=== PATIENT | female | born 1990 | race Caucasian/White ===

== ENCOUNTER 2022-01-17 15:16 | Day surgery (SDC) | payer BC ==
[2022-01-17 16:19] VITALS: BMI 27.3
[2022-01-17] MEDS ORDERED: hydrALAZINE 20 MG/ML VIAL SLOW IVP PRN (16:45)
[2022-01-17 18:17] LABS: Bilirubin Neg (Negative); Blood, Urine 250 (Negative); Clarity Clear (Clear); Glucose, Urine (Dipstick) Normal (Negative); Ketone, Urine Negative (Negative); Leukocyte 25 (Negative); Nitrite Negative (Negative); Protein, Urine (Dipstick) 15 mg/dl (Neg-Trace); Urobilinogen Normal mg/dL (Less than 2)
[2022-01-17 18:25] LABS: Squamous Epithelial 0-3 HPF (0-3)
[2022-01-17 18:26] LABS: Bacteria/HPF 1+ HPF (None Seen); Transitional Epithelial 0-3 HPF (None Seen)
[2022-01-17] MEDS ORDERED: Cephalexin 500 MG CAP PO SCH (23:59)
== END 2022-01-17 19:45 | disposition home or self-care (01) ==
LOC: CSHLD/OP 15:16
PROVIDERS: ATTEND Student in an Organized Health Care Education/Training Program
DX: O30.002 Twin pregnancy, unspecified number of placenta and unspecified number of amniotic sacs, second trimester (principal); Z3A.24 24 weeks gestation of pregnancy; O23.42 Unspecified infection of urinary tract in pregnancy, second trimester; N39.0 Urinary tract infection, site not specified; Z79.899 Other long term (current) drug therapy
CPT/HCPCS: 76815; 81003; 81015; 87086; 99282

== ENCOUNTER 2022-04-13 05:41 | Inpatient (IN) | payer BC ==
[2022-04-12 11:51] LABS: Hemoglobin 12.6 g/dL (12.0-15.5); Platelet Count 219 10x3/uL (150-450)
[2022-04-12 12:25] LABS: Syphilis Antibody Nonreactive (Nonreactive); Syphilis Antibody Index 0.03 S/CO (<1.00 Non-Reactive)
[2022-04-12 12:27] LABS: HBSAg Index 0.15 S/CO (0-0.99); HIV (1/2) Antibody/Antigen Non-Reactive (NonReactive); HIV 1/2 INDEX 0.07 S/CO (<1.00); Hep B Surf Ag Non-Reactive S/CO (NonReactive)
[2022-04-12 12:37] LABS: SARS-CoV-2 NAA Rapid Test Not Detected (NotDetected)
[2022-04-13] MEDS ORDERED: hydrALAZINE 20 MG/ML VIAL SLOW IVP PRN ×2 (06:21→11:07)
[2022-04-13] MEDS ORDERED: Ondansetron PF 4 MG/2 ML Vial IVP PRN ×3 (06:21→11:07)
[2022-04-13] MEDS ORDERED: Lactated Ringer's 1,000 ML IV SCH (06:21)
[2022-04-13] MEDS ORDERED: Famotidine/PF 20 mg/2ml Vial SLOW IVP PRN (06:21)
[2022-04-13] MEDS ORDERED: Bicitra 30 ML UDCUP PO PRN (06:21)
[2022-04-13] MEDS ORDERED: Promethazine HCl 25 MG/ML VIAL IM PRN ×2 (06:21→08:32)
[2022-04-13] MEDS ORDERED: CEFAZOLIN 2 GM in Sodium Chloride 0.9% 100 ML IVPB SCH (06:21)
[2022-04-13 06:26] VITALS: BMI 31.3
[2022-04-13] MEDS ORDERED: Promethazine HCl 25 MG SUPP PR PRN (08:32)
[2022-04-13] MEDS ORDERED: Moisturizing Cream (Eucerin) 113 GM JAR TOP PRN (08:32)
[2022-04-13] MEDS ORDERED: Naloxone HCl 0.4 mg/ml Vial IVP PRN ×2 (08:32)
[2022-04-13] MEDS ORDERED: diphenhydrAMINE 50 MG/ML VIAL IVP PRN (08:32)
[2022-04-13] MEDS ORDERED: Fentanyl 100 MCG/2 ML VIAL SLOW IVP PRN (08:32)
[2022-04-13] MEDS ORDERED: Naloxone HCl 0.4 mg/ml Vial IV PRN (08:32)
[2022-04-13] MEDS ORDERED: Ondansetron HCl/PF 4 MG/2 ML Vial IVP PRN (08:32)
[2022-04-13] MEDS ORDERED: Meperidine HCl/PF 25 MG/ML VIAL SLOW IVP PRN (08:32)
[2022-04-13] MEDS ORDERED: Communication Order-Pharmacy FS SCH (08:45)
[2022-04-13] MEDS ORDERED: Ketorolac Tromethamine 30 MG/ML VIAL IVP SCH (08:45)
[2022-04-13] MEDS ORDERED: Acetaminophen 325 MG TAB PO PRN (11:07)
[2022-04-13] MEDS ORDERED: Lanolin Ointment 7 GM TUBE TOP PRN (11:07)
[2022-04-13] MEDS ORDERED: HYDROcodone/Acetaminophen 5/325 mg Tablet PO PRN ×3 (11:07→20:45)
[2022-04-13] MEDS ORDERED: Bisacodyl 10 MG SUPP PR PRN (11:07)
[2022-04-13] MEDS ORDERED: diphenhydrAMINE 25 MG CAP PO PRN (11:07)
[2022-04-13] MEDS ORDERED: Simethicone Chewable 80 MG TAB PO PRN (11:07)
[2022-04-13] MEDS ORDERED: Docusate 100 MG CAP PO SCH (12:00)
[2022-04-13] MEDS ORDERED: Ferrous Sulfate 325 MG TAB PO SCH (12:00)
[2022-04-13] MEDS ORDERED: Prenatal Vitamin 1 TAB PO SCH (12:00)
[2022-04-13] MEDS: Ketorolac Tromethamine 30 MG/ML VIAL IVP PRN ×2 (14:29→22:31)
[2022-04-13] MEDS ORDERED: Zolpidem Tartrate 5 MG TAB PO PRN (20:45)
[2022-04-13] MEDS: Docusate 100 MG CAP PO SCH (21:41)
[2022-04-13] MEDS: Ferrous Sulfate 325 MG TAB PO SCH (22:31)
[2022-04-14 03:30] LABS: Hemoglobin 10.6 g/dL (12.0-15.5); Mean Corpuscular HGB CONC 34.1 g/dL (32.0-36.0); Mean Corpuscular Hemoglobin 33.2 pg (27.0-33.0); Mean Corpuscular Volume 97.5 fl (81.6-98.3); Mean Platelet Volume 12.7 fl (7.4-10.4); Platelet Count 181 10x3/uL (150-450); RBC Distribution Width 14.5 % (11.5-14.5); Red Blood Cell (RBC) Count 3.19 10x6/uL (3.90-5.03); White Blood Cell (WBC) Count 13.6 10x3/uL (3.5-10.5)
[2022-04-14] MEDS: Ketorolac Tromethamine 30 MG/ML VIAL IVP PRN (06:10)
[2022-04-14] MEDS: Ferrous Sulfate 325 MG TAB PO SCH ×2 (07:11→21:04)
[2022-04-14] MEDS: Docusate 100 MG CAP PO SCH ×3 (08:14→21:48)
[2022-04-14] MEDS: Prenatal Vitamin 1 TAB PO SCH (08:14)
[2022-04-14] MEDS: Ibuprofen 800 MG TAB PO SCH ×2 (13:03→21:06)
[2022-04-14] MEDS: ACETAMINOPHEN 650 MG PO PRN (20:00)
[2022-04-15] MEDS: ACETAMINOPHEN 650 MG PO PRN ×4 (01:32→21:57)
[2022-04-15] MEDS: Ibuprofen 800 MG TAB PO SCH ×3 (05:14→21:01)
[2022-04-15] MEDS: Ferrous Sulfate 325 MG TAB PO SCH ×2 (07:19→14:14)
[2022-04-15] MEDS: Docusate 100 MG CAP PO SCH ×2 (09:49→21:01)
[2022-04-15] MEDS: Prenatal Vitamin 1 TAB PO SCH (11:32)
[2022-04-16] MEDS: ACETAMINOPHEN 650 MG PO PRN ×3 (04:28→14:19)
[2022-04-16] MEDS: Ibuprofen 800 MG TAB PO SCH ×2 (05:49→14:18)
[2022-04-16] MEDS: Prenatal Vitamin 1 TAB PO SCH (08:10)
[2022-04-16] MEDS: Ferrous Sulfate 325 MG TAB PO SCH (08:10)
[2022-04-16] MEDS: Docusate 100 MG CAP PO SCH (08:29)
[2022-04-16 11:07] VITALS: BP 122/73; TEMP 98.2
[2022-04-16] MEDS ORDERED: Boostrix 0.5 ML (Tdap) VIAL (>/=7 yrs of age) IM ONE (11:07)
== END 2022-04-16 15:30 | disposition home or self-care (01) | DRG 788 ==
LOC: CSHLD 05:41 → CSHPP 10:43
PROVIDERS: ADMIT Student in an Organized Health Care Education/Training Program; ATTEND Student in an Organized Health Care Education/Training Program
PROC: 10D00Z1 Extraction of Products of Conception, Low, Open Approach (ICD-10-PCS; principal; 2022-04-13)
DX: O30.043 Twin pregnancy, dichorionic/diamniotic, third trimester (principal); Z3A.37 37 weeks gestation of pregnancy; Z37.2 Twins, both liveborn; O99.824 Streptococcus B carrier state complicating childbirth; Z20.822 Contact with and (suspected) exposure to COVID-19; Z91.018 Allergy to other foods; O32.1XX1 Maternal care for breech presentation, fetus 1; O24.420 Gestational diabetes mellitus in childbirth, diet controlled; Z79.82 Long term (current) use of aspirin; E03.9 Hypothyroidism, unspecified; O99.284 Endocrine, nutritional and metabolic diseases complicating childbirth
CPT/HCPCS: 36415; 51702; 85014; 85018; 85027; 85049; 86780; 86850; 86900; 86901; 87340; 87389; J1885; J3490; S0028; U0002